=== PATIENT | male | born 1950 | race Caucasian/White ===

== ENCOUNTER 2017-02-19 14:44 | Emergency (ER) | payer MEDICARE, OTHER ==
[2017-02-19] MEDS ORDERED: Lidocaine 1.5% EPI 1:200,000* 30 ML SDV INJ ONE (18:28)
--- NOTE | 2017-02-19 18:56 | RAD ---
HISTORY: Penetrating trauma COMPARISONS: None VIEWS: 4, Frontal, lateral, and oblique views of the left hand. Evaluation of the fourth digit is limited by metallic jewelry. FINDINGS: BONE DENSITY: Normal. BONES: There is no displaced fracture. JOINTS: There is no arthropathy. ALIGNMENT: There is no dislocation. SOFT TISSUES: Unremarkable. OTHER FINDINGS: There is no radiopaque foreign body in the submitted images. IMPRESSION: NO ACUTE OSSEOUS INJURY. NO RADIOPAQUE FOREIGN BODY. IF SYMPTOMS PERSIST, RECOMMEND REPEAT IMAGING.
--- NOTE | 2017-02-19 19:17 | ED ---
Laceration/Wound HPI - HPI Summary HPI Summary: 66M presents with laceration to left palm from a picture frame. does not believe glass in wound. area is still currently bleeding. denies any numbness or tingling. has full ROM of finger. did not take anything for pain. Pt states last tetanus vaccination was about 10 years ago. He is on a baby aspirin. He is right handed - History of Current Complaint Stated Complaint: LT PALM LAC Time Seen by Provider: 02/19/17 17:39 Pain Intensity: 0 - Allergy/Home Medications Allergies/Adverse Reactions: Allergies Allergy/AdvReac Type Severity Reaction Status Date / Time No Known Allergies Allergy Verified 01/03/13 15:24 PMH/Surg Hx/FS Hx/Imm Hx Endocrine/Hematology History: Reports: Hx Anticoagulant Therapy - BABY ASA Denies: Hx Diabetes Cardiovascular History: Denies: Hx Congestive Heart Failure, Hx Hypertension GI History: Comment Only: Other GI Disorders - family hx of colon ca. prior failed virtual colons. History: Denies: Hx Renal Disease - Surgical History Surgery Procedure, Year, and Place: 2 hernia surgeries,deviated septum surgery, sinus polyp, tonsils Infectious Disease History: No Infectious Disease History: Denies: Traveled Outside the [place] in Last 30 Days - Social History Alcohol Use: None Substance Use Type: Reports: None Smoking Status (MU): Never Smoked Tobacco Review of Systems Negative: Fever Negative: Chest Pain Negative: Shortness Of Breath Positive: Other - laceration left hand All Other Systems Reviewed And Are Negative: Yes Physical Exam Triage Information Reviewed: Yes Vital Signs On Initial Exam: Initial Vitals Temp Pulse Resp BP Pulse Ox 98.5 F 64 20 147/99 99 02/19/17 14:49 02/19/17 14:49 02/19/17 14:49 02/19/17 14:49 02/19/17 14:49 Vital Signs Reviewed: Yes Appearance: Positive: Well-Appearing Skin: Positive: Warm, Dry, Other - 3cm laceration on palmar aspect of left palm Head/Face: Positive: Normal Head/Face Inspection Eyes: Positive: Normal, Conjunctiva Clear Respiratory/Lung Sounds: Positive: Clear to Auscultation, Breath Sounds Present Cardiovascular: Positive: Normal, RRR Musculoskeletal: Positive: Strength/ROM Intact - left hand, Other - good pulses , capillary refill<2 secs, sensation groslly intact Procedures - Laceration/Wound Repair 1 Location: Other - left palm near thumb Description: Linear Anesthesia: Local, 1.0% Length, Depth and Shape: 3cm Betadine Prep?: Yes Irrigated w/ Saline (ccs): 200 Laceration/Wound Explored: no foreign body removed Suture Type: Prolene - 64-0 Number of Sutures: 34 Diagnostics - Vital Signs Vital Signs Temp Pulse Resp BP Pulse Ox 02/19/17 17:10 98.9 F 61 17 136/96 100 02/19/17 14:49 98.5 F 64 20 147/99 99 - Laboratory Lab Statement: Any lab studies that have been ordered have been reviewed, and results considered in the medical decision making process. Laceration Repair Course/Dx - Course Course Of Treatment: 66M presents with laceration to left palm from a picture frame. does not believe glass in wound. area is still currently bleeding. denies any numbness or tingling. has full ROM of finger. gave tetanus. xray no foreign body. placed 4 and bleeding now controlled. patient understands and agrees with plan. - Differential Dx Differental Diagnoses: Abrasion, Avulsion, Laceration - Clinical Impression Provider Diagnoses: Laceration of left palm Discharge - Discharge Plan Condition: Good Disposition: HOME Patient Education Materials: Care For Your Stitches (ED) Referrals: Dav Corcoran MD [Primary Care Provider] - Additional Instructions: Take Tylenol or ibuprofen for pain Keep area clean and dry for 48 hours Keep kendra on for 5 days Return to ED or primary in 10-14 days to have sutures removed Return to ED if develop signs of infection such as fever, spreading redness, or pus.
[2017-02-19] MEDS ORDERED: Tetan/Diph/Pertus SYR(Tdap)* 0.5 ML SYR(BOOSTRIX) use SYR IM ONE (19:19)
[2017-02-19 19:43] VITALS: BP 137/84
== END 2017-02-19 19:43 | disposition home or self-care (01) ==
LOC: ED 14:44
DX: S61.412A Laceration without foreign body of left hand, initial encounter (principal); W25.XXXA Contact with sharp glass, initial encounter; Y93.9 Activity, unspecified; Y92.9 Unspecified place or not applicable; Z23 Encounter for immunization; Z79.82 Long term (current) use of aspirin
CPT/HCPCS: 12002; 90471; 90715; 99282